=== PATIENT | female | born 1935 | race African-American/Black ===

== ENCOUNTER 2021-07-20 03:48 | Emergency (ER) | payer MEDICARE ==
[~2021-07-20] VITALS: Ht 162.6 cm; Wt 50.0 kg
[2021-07-20] MEDS ORDERED: ONDANSETRON HCL 4MG/2ML INJ IV STA (04:33)
[2021-07-20] MEDS ORDERED: MAGNESIUM/ALUMINUM HYDROXIDE/SIMETHICONE 30ML UDC PO STA (04:33)
[2021-07-20] MEDS ORDERED: METOCLOPRAMIDE HCL 10MG/2ML VIAL IV STA (04:33)
[2021-07-20 04:56] LABS: BASOPHILS % 0.9 % (0.0-2.0); EOSINOPHILS % 3.5 % (0.0-5.0); HEMATOCRIT. 36.9 % (36.0-48.0); HEMOGLOBIN. 12.2 g/dL (12.0-16.0); LYMPHOCYTES % 22.1 % (20.0-50.0); MEAN CORPUSCULAR HEMOGLOBIN 32.2 pg (28.0-32.0); MEAN CORPUSCULAR VOLUME 97.7 fL (81.0-99.0); MEAN PLATELET VOLUME 9.2 fl (7.4-10.4); MONOCYTES % 9.9 % (2.0-8.0); NEUTROPHILS % 63.6 % (40.0-76.0); PLATELET 233 x1000/uL (130-400); RED BLOOD CELL COUNT 3.78 mill/uL (4.2-5.4); RED CELL DISTRIBUTION WIDTH 13.1 % (11.6-14.6)
[2021-07-20 05:04] LABS: CHLORIDE 112 mEq/L (98-107)
[2021-07-20 11:50] VITALS: BP 146/42
== END 2021-07-20 13:37 | disposition left against medical advice (07) ==
LOC: ER 04:18 → EDBEDREQ 08:12 → ER 13:37 → CANBEDREQ 13:39
DX: R07.89 Other chest pain (principal); K21.9 Gastro-esophageal reflux disease without esophagitis; I10 Essential (primary) hypertension; Z20.822 Contact with and (suspected) exposure to COVID-19
CPT/HCPCS: 36415; 71045; 80053; 83690; 84484; 85025; 93005; 96374; 96375; 99285; C9803; J2405; J2765; U0003; U0005